=== PATIENT | female | born 1940 | race Caucasian/White ===

== ENCOUNTER 2017-06-20 15:20 | Emergency (ER) | payer MEDICARE, BC ==
[~2017-06-20] VITALS: Ht 162.6 cm; Wt 63.6 kg
[~2017-06-20 15:20] MED LIST changes: -ESMOLOL 10 ML ONE; -FER325 PO; -LIDOCAINE 2% (SDV) 5 ML INJ ONE; -METOPROLOL 5 MG INJ ONE; -PROPOFOL 40 ML ONE; -RIVA20TA5 PO
[2017-06-20] MEDS ORDERED: METOPROLOL 50 MG TAB PO ONE (15:30)
[2017-06-20] MEDS ORDERED: METOPROLOL 5 MG INJ IV ONE (15:30)
[2017-06-20] MEDS ORDERED: SOD CHLORIDE 0.9% 1,000 ML IV STA (15:50)
--- NOTE | 2017-06-20 15:53 | RADRPT ---
PROCEDURE: Chest x-ray CLINICAL INDICATION: Chest pain TECHNIQUE: Chest single view COMPARISON: 02/14/2016 FINDINGS: There is stable mild cardiomegaly and an sclerotic aortic calcification. The pulmonary vessels are normal in caliber. The lungs are clear. The costophrenic angles are sharp. The visualized bony th orax is unremarkable. IMPRESSION: No acute cardiopulmonary disease. Stable cardiomegaly and atherosclerotic aortic calcification RPTAT: HH .Arvind Wang MD, Date Time Electronically viewed and signed by .Arvind Wang MD, on 06/20/2017 15:53 .W/
[2017-06-20 15:57] LABS: BASOPHILS % 0.5 % (0.0-2.0); EOSINOPHILS # 0.4 10^3/ul (0.0-0.5); EOSINOPHILS % 5.3 % (0.0-7.0); HEMATOCRIT 37.9 % (37.0-47.0); HEMOGLOBIN 11.9 g/dl (12.0-16.0); LYMPHOCYTES # 1.5 10^3/ul (0.8-2.9); LYMPHOCYTES % 20.2 % (15.0-51.0); MEAN CORPUSCULAR HEMOGLOBIN 27.5 pg (29.0-33.0); MEAN CORPUSCULAR HGB CONC 31.4 g/dl (32.0-37.0); MEAN CORPUSCULAR VOLUME 87.7 fl (82.0-101.0); MEAN PLATELET VOLUME 10.1 fl (7.4-10.4); MONOCYTE # 0.4 10^3/ul (0.3-0.9); NEUTROPHILS % 67.7 % (39.0-77.0); PLATELET COUNT 179 10^3/UL (140-415); RED BLOOD COUNT 4.32 10^6/ul (4.20-5.40); RED CELL DISTRIBUTION WIDTH 15.7 % (11.5-14.5); WHITE BLOOD COUNT 7.4 10^3/ul (4.8-10.8)
[2017-06-20 16:16] VITALS: Ht 162.6 cm; Wt 63.6 kg
[2017-06-20 16:21] LABS: ANION GAP 14 (8-16); BLOOD UREA NITROGEN 13 mg/dl (7-20); CALCIUM 8.7 mg/dl (8.4-10.2); CARBON DIOXIDE 23 mmol/L (21-31); CHLORIDE 106 mmol/L (97-110); CREATININE 0.58 mg/dl (0.44-1.00); GLUCOSE 79 mg/dl (70-220); MAGNESIUM 1.7 mg/dl (1.7-2.5); POTASSIUM 3.8 mmol/L (3.5-5.1); SODIUM 139 mmol/L (135-144)
[2017-06-20] MEDS ORDERED: RIVA20TA PO (16:27)
[2017-06-20] MEDS ORDERED: FER325 PO (16:28)
[2017-06-20 16:42] LABS: TROPONIN-I < 0.012 ng/ml (0.00-0.12)
[2017-06-20 17:43] LABS: THYROID STIMULATING HORMONE 0.424 MIU/L (0.465-4.680)
--- NOTE | 2017-06-20 17:44 | ERD ---
ER Documentation Chief Complaint Chief Complaint PT SENT FROM GI LAB FOR A code green for tachy and a-fib no cp HPI Patient is a 76-year-old female with A. fib, hypertension, and coronary disease who presents with rapid A. fib. The patient was going to get a endoscopy and colonoscopy today but when she went to the GI lab she had rapid atrial fibrillation. Dr. Sandy from GI call me and then called a code green so the patient could be transported to the emergency department. The procedure did not get performed. She denies symptoms. She has no chest pain or shortness of breath. Her primary doctor is Dr. Cevallos. ROS All systems reviewed and are negative except as per history of present illness. Medications Home Meds Reported Medications Ferrous Sulfate* (Ferrous Sulfate*) Unknown Strength Tabec, 1 TAB PO BID, TAB 06/20/17 Rivaroxaban* (Xarelto*) 20 Mg Tablet, 20 MG PO WITH DINNER, TAB 06/20/17 Levothyroxine Sodium* (Synthroid*) 100 Mcg Tablet, 100 MCG PO BEFORE BREAKFAST, #30 TAB 06/20/17 Calcium Carbonate/Vitamin D3 (OYSTER SHELL 500 MG + VIT D TB) 1 Each Tablet, 1 EACH PO DAILY, TAB 02/14/16 Metoprolol Succinate* (Toprol XL*) 50 Mg Tab.er.24h, 50 MG PO BID, #30 TAB 02/11/16 Atorvastatin* (Atorvastatin*) 40 Mg Tablet, 40 MG PO QHS, #30 TAB 02/11/16 Raloxifene Hcl* (Evista*) 60 Mg Tablet, 60 MG ORAL DAILY 01/09/14 Omeprazole* (Prilosec*) 20 Mg Capsule.dr, DAILY 01/09/14 Discontinued Reported Medications [Xaralto] No Conflict Check, 20 MG DAILY 06/20/17 Tramadol Hcl* (Ultram*) 50 Mg Tablet, 50 MG PO QID Y for PAIN, TAB 02/14/16 Aspirin (Khris Child) 81 Mg Chew, 81 MG ORAL DAILY 01/09/14 Amlodipine Besylate* (Norvasc*) 5 Mg Tablet, 5 MG ORAL DAILY 01/09/14 Discontinued Scripts Levothyroxine Sodium* (Synthroid*) 88 Mcg Tablet, 88 MCG PO DAILY@06 for 90 Days , TAB Prov:KESHAV DOLAN MD 02/13/16 Allergies Allergies: Coded Allergies: No Known Allergy (Unverified , 06/20/17) PMhx/Soc History of Surgery: Yes (CARDIAC STENT PLACED 3 YRS AGO) Anesthesia Reaction: No Hx Neurological Disorder: No Hx Respiratory Disorders: No Hx Cardiac Disorders: Yes (CAD, AFIB,HEART ATTACK, ) Hx Psychiatric Problems: No Hx Miscellaneous Medical Probl: Yes (HYPERLIPEDEMIA) Hx Alcohol Use: No Hx Substance Use: No Hx Tobacco Use: No Smoking Status: Never smoker FmHx Family History: No diabetes Physical Exam Vitals Vital Signs Date Time Temp Pulse Resp B/P Pulse Ox O2 Delivery O2 Flow Rate FiO2 06/20/17 17:18 61 17 140/69 95 Nasal Cannula 2.0 06/20/17 16:20 99 17 168/99 100 Room Air 06/20/17 16:16 98.6 118 17 168/99 98 Physical Exam Const: No acute distress Head: Atraumatic Eyes: Normal Conjunctiva ENT: Normal External Ears, Nose and Mouth. Neck: Full range of motion..~ No meningismus. Resp: Clear to auscultation bilaterally Cardio: Tachycardic rate without murmur Abd: Soft, non tender, non distended. Normal bowel sounds Skin: No petechiae or rashes Back: No midline or flank tenderness Ext: No cyanosis, or edema Neur: Awake and alert Psych: Normal Mood and Affect Result Diagram: 06/20/17 1530 06/20/17 1530 Results 24 hrs Laboratory Tests Test 06/20/17 15:30 White Blood Count 7.410^3/ul Red Blood Count 4.3210^6/ul Hemoglobin 11.9g/dl Hematocrit 37.9% Mean Corpuscular Volume 87.7fl Mean Corpuscular Hemoglobin 27.5pg Mean Corpuscular Hemoglobin Concent 31.4g/dl Red Cell Distribution Width 15.7% Platelet Count 56742^3/UL Mean Platelet Volume 10.1fl Neutrophils % 67.7% Lymphocytes % 20.2% Monocytes % 6.0% Eosinophils % 5.3% Basophils % 0.5% Nucleated Red Blood Cells % 0.0/100WBC Neutrophils # 5.010^3/ul Lymphocytes # 1.510^3/ul Monocytes # 0.410^3/ul Eosinophils # 0.410^3/ul Basophils # 0.010^3/ul Nucleated Red Blood Cells # 0.010^3/ul Sodium Level 139mmol/L Potassium Level 3.8mmol/L Chloride Level 106mmol/L Carbon Dioxide Level 23mmol/L Anion Gap 14 Blood Urea Nitrogen 13mg/dl Creatinine 0.58mg/dl Glucose Level 79mg/dl Calcium Level 8.7mg/dl Magnesium Level 1.7mg/dl Troponin I < 0.012ng/ml Thyroid Stimulating Hormone (TSH) 0.424MIU/L Free Thyroxine 2.25ng/dl Current Medications Medications (Trade) Dose Ordered Sig/Judith Route PRN Reason Start Time Stop Time Status Last Admin Dose Admin Metoprolol Tartrate (Lopressor) 50 mg ONCE ONCE PO 06/20/17 15:30 06/20/17 15:31 DC 06/20/17 16:03 Metoprolol Tartrate 5 mg 5 mg ONCE ONCE IV 06/20/17 15:30 06/20/17 15:31 DC 06/20/17 16:03 Sodium Chloride (NS) 1,000 ml @ 1,000 mls/hr Q1H STAT IV 06/20/17 15:50 06/20/17 16:49 DC 06/20/17 16:02 Procedures/MDM EKG read by me: Rate/Rhythm: Atrial fibrillation with rapid ventricular response Intervals: Normal Impression: Rapid A. fib Patient is a 76-year-old female who presents with acute rapid atrial fibrillation. She was given Lopressor IV and by mouth and heart rate has improved. Laboratory studies are basically normal other than mild anemia that does not require transfusion. I spoke with Dr. Cevallos and he would like me to discharge the patient and he will see the patient in his office tomorrow. The patient can return for any worsening symptoms. I doubt acute coronary syndrome, pneumonia, pneumothorax, pulmonary embolism, or aortic dissection. Critical Care: Time: 35 minutes excluding all billable procedures. Treatments/Evaluations: Close monitoring and treatment of unstable vital signs, cardiorespiratory, and neurologic status, while maintaining tight balance of fluid, respiratory, and cardiac interventions. Departure Diagnosis: Primary Impression: Atrial fibrillation with RVR Condition: Fair Patient Instructions: Atrial Fibrillation Additional Instructions: Call your primary care doctor TOMORROW for an appointment during the next 1-2 days.See the doctor sooner or return here if your condition worsens before your appointment time. WENDI LARSON MD Jun 20, 2017 17:44
[2017-06-20 18:20] VITALS: BP 124/84; PULSE 79; RESP 17
== END 2017-06-20 18:21 | disposition home or self-care (01) ==
LOC: E/R 15:20
DX: I48.91 Unspecified atrial fibrillation (principal); I10 Essential (primary) hypertension; I25.10 Atherosclerotic heart disease of native coronary artery without angina pectoris; Z79.01 Long term (current) use of anticoagulants; Z79.82 Long term (current) use of aspirin; Z98.61 Coronary angioplasty status
CPT/HCPCS: 36415; 71010; 80048; 83735; 84439; 84443; 84484; 85025; 93005; 96374; 99291; J7030

== ENCOUNTER → 2017-06-20 | Day surgery (SDC) | payer MEDICARE, BC ==
[~2017-06-20] VITALS: Ht 162.6 cm; Wt 63.4 kg
[~2017-06-20] MED LIST: AMLO5TAB4 ORAL; ASPI-676 ORAL; ATOR40TA68 PO; CALC-277 PO; ESMOLOL 10 ML ONE; FER325 PO; LEVO88TA PO; LIDOCAINE 2% (SDV) 5 ML INJ ONE; METO-319 PO; METOPROLOL 5 MG INJ ONE; OMEP20CA9; PROPOFOL 40 ML ONE; RALO60TA12 ORAL; RIVA20TA5 PO; SYN1 PO; TRAM-40 PO; XARALTO
[2017-06-20 13:47] VITALS: Ht 162.6 cm; Wt 63.4 kg
[2017-06-20 14:49] VITALS: BP 179/106; PULSE 118; RESP 23
== END | disposition home or self-care (01) ==
LOC: GIL 12:50
PROVIDERS: ATTEND Internal Medicine Gastroenterology
DX: D64.9 Anemia, unspecified (principal); Z53.9 Procedure and treatment not carried out, unspecified reason; I25.10 Atherosclerotic heart disease of native coronary artery without angina pectoris; I10 Essential (primary) hypertension; I48.91 Unspecified atrial fibrillation

== ENCOUNTER 2017-08-12 08:10 | Day surgery (SDC) | END 2017-08-12 11:24 | disposition home or self-care (01) ==